=== PATIENT | female | born 1995 | race African-American/Black ===

== ENCOUNTER 2017-03-05 22:33 | Emergency (ER) | payer OTHER ==
[2017-03-05 22:40] VITALS: BMI 41.6
[2017-03-06] MEDS ORDERED: TORADOL 60 MG VIAL IM ONE (00:14)
[2017-03-06] MEDS ORDERED: TORADOL 60 MG VIAL ONE (00:16)
--- NOTE | 2017-03-06 00:16 | DR.GENAD ---
HPI - PCP Primary Care Physician: SHERIDAN - Complaint/Symptoms Chief Complaint Doctors Comments: complains of left lower abdominal pain with frequent urination and dysuria. States pain onset 8am with sharp left lower abdominal pain worst on movement. States she has had a problem with ovarian cyst before but denies kidney stones. States her last menstrual period wasFeb 16 and she is not taking any contraceptives because she is in a same sex relationship. She denies tobacco or alcohol usage. Chief Complaint:: LOWER ABDOMEN Self Treatment fo Chief Complaint: NO TREATMENT - Nurses notes reviewed Nurses Notes Review: Yes - Source History Provided: Patient - Mode of Arrival Mode of Arrival: Ambulatory - Timing Onset of Chief Complaint: 03/05/17 Came on: Gradually - Duration Duration: Intermittent How lon Duration: Hours - Location Location: left lower abdominal pain - Severity Severity: Moderate - Modifying Factors Worsens:: movement Improves:: nothing PMH - PMH Past Medical History: No Past Surgical History: No - Family History History of Family Medical Conditions: No - Social History Does patient currently use any type of tobacco product: No Have you used tobacco products in the last 12 months: No Type of Tobacco Use: None Does any household member use tobacco: No Alcohol Use: None Do you use any recreational Drugs:: No Lives With: Alone Lives Where: Home - infectious screening In the last 2 months have you had wt loss of >10#?: NO Have you had fever, night sweats or hemotysis?: No Have you traveled outside the country in the last 6 months?: No Isolation: Standard ROS - Review of Systems Constitutional: No Symptoms Reported. negative: See HPI, Chills, Diaphoresis, Fever, Malaise, Weakness, Irritable, Fatigue, Loss of Appetite, Other Eyes: No Symptoms Reported ENTM: No Symptoms Reported. negative: See HPI, Ear Pain, Ear Discharge, Pulling on Ears, Hearing Loss, Nose Pain, Nose Discharge, Epistaxis, Nose Congestion, Mouth Pain, Mouth Swelling, Loose Teeth, Drooling, Throat Pain, Throat Swelling, Ear Foreign Body Respiratoy: No Symptoms Reported. negative: See HPI, Productive Cough, Non- Productive Cough, Moist Cough, Dry Cough, Hacking Cough, Barking Cough, Brassy Cough, Orthopnea, Short of Breath, Stridor, Wheezing, Hemoptysis, Other Cardiovascular: No Symptoms Reported. negative: See HPI, Chest Pain, Edema, Palpitations, Syncope, Cyanosis, Skin Mottling, Other Gastrointestinal/Abdominal: Abdominal Pain. negative: No Symptoms Reported, See HPI, Constipation, Diarrhea, Nausea, Vomiting, Food Intolerance, Other Genitourinary: No Symptoms Reported, Dysuria, Frequency. negative: See HPI, Discharge, Hematuria, Pain, Bleeding, Other Neurological: No Symptoms Reported Musculoskeletal: No Symptoms Reported Integumentary: No Symptoms Reported. negative: See HPI, Change in Color, Change in Hair/Nails, Dryness, Lesions, Lumps, Rash, Itching, Wound, Bruises, Juandice, Other Hematologic/Lymphatic: No Symptoms Reported. negative: See HPI, Anemia, Blood Clots, Easy Bleeding, Easy Bruising, Swollen Glands, Lymphadenopathy, Other Endocrine: No Symptoms Reported Psychiatric: No Symptoms Reported PE - Vital Signs Vitals: Temperature 99.0 F Pulse Rate [Left Radial] 97 Pulse Rate 97 Respiratory Rate 18 Blood Pressure [Right Arm] 142/80 Blood Pressure 146/87 O2 Sat by Pulse Oximetry 100 - General Limitations: No Limitations General Appearance: Alert, In Distress (mild). negative: In No Apparent Distress, Appears Intoxicated, Anxious, Lethargic, Obtunded, Obese, Cachectic, Other - Head Head Exam: Normal Inspection, Atraumatic, Normocephalic - Eyes Eye exam: Normal Appearance, PERRL, EOMI. negative: Scleral Icterus, Conjunctival Injection, Nystagmus, Miosis, Mydrasis, Periorbital Swelling, Periorbital Tenderness, Other - ENT ENT Exam: Normal Exam, Normal Oropharynx, Normal External Ear Exam, Mucous Membranes Moist, TM's Normal Bilaterally External Ear Exam: Normal External Inspection TM/Canal Exam: Bilateral Normal Nose Exam: Normal Nose Exam, Sinus Tenderness, Nasal Deviation. negative: Crepitus, Septal Hematoma, Laceration, Abrasion, Other Mouth Exam: Normal Inspection Throat Exam: Normal Inspection - Neck Neck Exam: Normal Inspection, Full ROM, Trachea Midline. negative: Tenderness, Meningismus, Lymphadenopathy, Thyromegaly, Other - Chest Chest Inspection: Normal Inspection, Symmetric Chest Wall Rise - Respiratory Respiratory Exam: Normal Lung Sounds Bilat Respiratory Exam: Bilateral Clear to Auscultation - Cardiovascular Cardiovascular Exam: Regular Rate, Normal Rhythm, Normal Heart Sounds - Abdominal Exam Abdominal Exam: Normal Inspection, Normal Bowel Sounds, Soft, Tenderness (left lower abdominal tenderness), Guarding, Dimnished Bowel Sounds Abdominal Tenderness: LLQ, Mild - Extremities Extremities Exam: Normal Inspection, Full ROM, Normal Capillary Refill. negative: Tenderness, Edema, Joint Swelling, Calf Tenderness, Other - Back Back Exam: Normal Inspection, Full ROM. negative: Tenderness, (R) CVA Tenderness, (L) CVA Tenderness, Muscle Spasm, Paraspinal Tenderness, Vertebral Tenderness, Rashes, (R) Sciatic Notch Tenderness, (L) Sciatic Notch Tendern, (R ) Straight Leg Raise, (L) Straight Leg Raise, Other - Neurologic Neurological Exam: Alert, Oriented X3, CN II-XII Intact, Normal Gait, Reflexes Normal - Psychiatric Psychiatric Exam: Normal Affect, Normal Mood. negative: Depressed, Agitated, Anxious, Flat Affect, Manic, Homicidal Ideation, Suicidal Ideation, Other - Skin Skin Exam: Warm, Dry, Intact, Normal Color. negative: Rash, Cyanosis, Diaphoresis, Erythema, Pallor, Mottled, Other ROR - Labs Reviewed Laboratory Results Reviewed?: Yes (all labs and x-ray results reviewed and discussed with patient) Result Diagrams: 03/06/17 00:37 03/06/17 00:37 Laboratory: WBC 20.5 X10^3/uL (3.6-10.0) H 03/06/17 00:37 RBC 5.49 X10^6/uL (3.5-5.4) H 03/06/17 00:37 Hgb 11.4 g/dL (12.0-16.0) L 03/06/17 00:37 Hct 35.5 % (36.0-47.0) L 03/06/17 00:37 MCV 64.6 fL (80.0-100.0) L 03/06/17 00:37 MCH 20.8 pg (27.0-34.0) L 03/06/17 00:37 MCHC 32.3 g/dL (33.0-35.0) L 03/06/17 00:37 RDW 17.2 % (11.6-16.5) H 03/06/17 00:37 Plt Count 235 X10^3/uL (150.0-450.0) 03/06/17 00:37 Plt Count Comment Adequate (ADEQUATE) 03/06/17 00:37 MPV 8.3 fL (7.4-11.0) 03/06/17 00:37 Neut % 86.9 % (42.0-75.0) H 03/06/17 00:37 Lymph % 7.0 % (21.0-51.0) L 03/06/17 00:37 [place] % 5.9 % (0.0-13.0) 03/06/17 00:37 Eos % 0.0 % (0.9-2.9) L 03/06/17 00:37 Baso % 0.2 % (0.2-1.0) 03/06/17 00:37 Neut # 17.8 x10^3/uL (2.2-4.8) H 03/06/17 00:37 Lymph # 1.4 X10^3/uL (1.3-2.9) 03/06/17 00:37 [place] # 1.2 x10^3/uL (0.3-0.8) H 03/06/17 00:37 Eos # 0.0 x10^3/uL (0.0-0.2) 03/06/17 00:37 Baso # 0.0 X10^3/uL (0.0-0.1) 03/06/17 00:37 Absolute Nucleated RBC 0.0 /100WBC 03/06/17 00:37 Plt Morphology Comment Normal (NORMAL) 03/06/17 00:37 RBC Morphology Abnormal (NORMAL) A 03/06/17 00:37 Hypochromasia 2+ A 03/06/17 00:37 Anisocytosis Slight A 03/06/17 00:37 Microcytosis 2+ A 03/06/17 00:37 Sodium 140 mmol/L (136-145) 03/06/17 00:37 Corrected Sodium TNP 03/06/17 00:37 Potassium 3.7 mmol/L (3.5-5.1) 03/06/17 00:37 Chloride 105 mmol/L (98-107) 03/06/17 00:37 Carbon Dioxide 24.3 mmol/L (21-32) 03/06/17 00:37 BUN 7 mg/dL (7-18) 03/06/17 00:37 Creatinine 0.89 mg/dL (0.55-1.02) 03/06/17 00:37 Est GFR (MDRD) Af Amer > 60 (>60) 03/06/17 00:37 Est GFR (MDRD) Non-Af > 60 (>60) 03/06/17 00:37 Glucose 98 mg/dL (65-99) 03/06/17 00:37 Calcium 8.8 mg/dL (8.5-10.1) 03/06/17 00:37 Corrected Calcium 9.5 mg/dL (8.5-10.1) 03/06/17 00:37 Total Bilirubin 0.70 mg/dL (0.2-1.0) 03/06/17 00:37 AST 13 Units/L (15-37) L 03/06/17 00:37 ALT 18 Units/L (12-78) 03/06/17 00:37 Alkaline Phosphatase 62 Units/L (46-116) 03/06/17 00:37 Total Protein 6.9 g/dL (6.4-8.2) 03/06/17 00:37 Albumin 3.1 g/dL (3.4-5.0) L 03/06/17 00:37 Globulin 3.8 g/dL (2.5-4.5) 03/06/17 00:37 Albumin/Globulin Ratio 0.8 Ratio (1.1-2.1) L 03/06/17 00:37 Amylase 37 Units/L (25-115) 03/06/17 00:37 Lipase 88 Units/L (73-393) 03/06/17 00:37 HCG, Qual Negative <10 mIU/mL 03/06/17 00:37 - XRAY XRAY Interpreted by: Radiologist (CT abdomen: Suggestive for bilateralhydrosalpinx with mild inflammatorystanding suggestive for PID) - Diagnosis Discharge Problem: Pelvic inflammatory disease (PID), Abdominal pain, Dysuria - Discharge Plan Disposition: 01 HOME, SELF-CARE Condition: Stable Prescriptions: Amoxicillin/Potassium Clav [Augmentin 875-125 Tablet] 1 tab PO Q12H #20 tab Doxycycline Hyclate [Vibramycin] 100 mg PO BID PRN #20 cap PRN Reason: Ibuprofen [MOTRIN TAB 800 MG *] 800 mg PO BID PRN #60 tab PRN Reason: Pain/Inflammation Metronidazole [Flagyl Tab 500 mg] 500 mg PO BID PRN #20 tab PRN Reason: - Follow ups/Referrals Follow ups/Referrals: TANISHA ZHANG [Primary Care Provider] - 3 days ROSA ARROA [STAFF PHYSICIAN] - 3 days - Instructions Instructions: Pelvic Inflammatory Disease, Dysuria
[2017-03-06 01:01] LABS: SERUM PREGNANCY TEST, QUAL NEGATIVE <10 mIU/mL
[2017-03-06 01:02] LABS: BASOPHILS % (AUTO) 0.2 % (0.2-1.0); HEMATOCRIT 35.5 % (36.0-47.0); HEMOGLOBIN 11.4 g/dL (12.0-16.0); LYMPHOCYTES # (AUTO) 1.4 X10^3/uL (1.3-2.9); MEAN CORPUSCULAR HEMOGLOBIN 20.8 pg (27.0-34.0); MEAN CORPUSCULAR HGB CONC 32.3 g/dL (33.0-35.0); MEAN CORPUSCULAR VOLUME 64.6 fL (80.0-100.0); MEAN PLATELET VOLUME 8.3 fL (7.4-11.0); MONOCYTES # (AUTO) 1.2 x10^3/uL (0.3-0.8); MONOCYTES % (AUTO) 5.9 % (0.0-13.0); NEUTROPHILS # (AUTO) 17.8 x10^3/uL (2.2-4.8); NEUTROPHILS % (AUTO) 86.9 % (42.0-75.0); PLATELET COUNT 235 X10^3/uL (150.0-450.0); RED BLOOD COUNT 5.49 X10^6/uL (3.5-5.4); RED CELL DISTRIBUTION WIDTH 17.2 % (11.6-16.5); WHITE BLOOD COUNT 20.5 X10^3/uL (3.6-10.0)
[2017-03-06 01:04] LABS: ALANINE AMINOTRANSFERASE 18 Units/L (12-78); ALBUMIN 3.1 g/dL (3.4-5.0); ALKALINE PHOSPHATASE 62 Units/L (46-116); AMYLASE 37 Units/L (25-115); ASPARTATE AMINO TRANSFERASE 13 Units/L (15-37); BLOOD UREA NITROGEN 7 mg/dL (7-18); CALCIUM 8.8 mg/dL (8.5-10.1); CARBON DIOXIDE 24.3 mmol/L (21-32); CHLORIDE 105 mmol/L (98-107); COR CA(FOR HYPOALB) 9.5 mg/dL (8.5-10.1); CREATININE 0.89 mg/dL (0.55-1.02); LIPASE 88 Units/L (73-393); SODIUM 140 mmol/L (136-145); TOTAL PROTEIN 6.9 g/dL (6.4-8.2); eGFR BLACK RACES > 60 (>60); eGFR NON BLACK RACES > 60 (>60)
[2017-03-06 01:27] LABS: ANISOCYTOSIS SLIGHT; HYPOCHROMASIA 2+; MICROCYTOSIS 2+; PLATELET MORPHOLOGY COMMENT NORMAL (NORMAL)
--- NOTE | 2017-03-06 01:36 | CT ---
CT abdomen and pelvis without contrast Indication: Left lower abdominal pain Technique: Helical CT images of the abdomen and pelvis were obtained without IV contrast. Reformatted images in the coronal and sagittal planes were also generated for review. Comparison: None Findings: Lung bases are clear. No aggressive osseous lesions are identified. Within the limits of a noncontrast exam, the liver, gallbladder, spleen, pancreas, adrenals and kidne ys are unremarkable. No radiopaque urinary tract stones or hydroureteronephrosis is identified. The G I tract, including the appendix is normal. There are fluid-filled, tubular structures within the right and left lower abdomen which appear to re present dilated fallopian tubes, compatible with hydrosalpinx. Mild surrounding inflammatory strandin g is seen. The unenhanced uterus is grossly within normal limits. The IVC, abdominal aorta and urinar y bladder are normal. No free air, free fluid or lymphadenopathy is identified. Impression: Imaging findings suggestive for bilateral hydrosalpinx with mild inflammatory stranding within the lo wer pelvis, collectively suggestive for PID. No definite tubo-ovarian abscess is identified, within t he limitations of a noncontrast exam. Reported By:
[2017-03-06] MEDS ORDERED: ROCEPHIN VIAL 1 GM IM ONE (01:54)
[2017-03-06] MEDS ORDERED: VIBRAMYCIN PO ONE ×2 (01:54→02:05)
[2017-03-06] MEDS ORDERED: ROCEPHIN VIAL 1 GM ONE (02:05)
[2017-03-06 02:07] VITALS: BP 142/80
[2017-03-06 02:51] LABS: BILIRUBIN,URINE NEGATIVE (NEGATIVE); BLOOD/HEMOGLOBIN,URINE NEGATIVE (NEGATIVE); GLUCOSE, URINE NEGATIVE (NEGATIVE); KETONES,URINE NEGATIVE (NEGATIVE); LEUKOCYTE ESTERASE ,URINE 1+ (NEGATIVE); NITRITES,URINE NEGATIVE (NEGATIVE); PROTEIN,URINE 1+ (NEGATIVE); UROBILINOGEN,URINE NORMAL (NORMAL)
[2017-03-06 03:00] LABS: APPEARANCE,URINE CLEAR (CLEAR); BACTERIA,URINE NEGATIVE /HPF (NEGATIVE); COLOR,URINE YELLOW (YELLOW); MUCUS,URINE FEW /HPF (NEGATIVE); RBC,URINE 0-3 /HPF (NEGATIVE); SQUAMOUS EPITHELIAL CELL,UR MODERATE /HPF (NEGATIVE)
== END 2017-03-06 03:11 | disposition home or self-care (01) ==
LOC: ER 22:33
DX: N73.9 Female pelvic inflammatory disease, unspecified (principal); R10.32 Left lower quadrant pain; R30.0 Dysuria
CPT/HCPCS: 36415; 74176; 80053; 81001; 82150; 83690; 84703; 85025; 96372; 96374; 99283; 99284; J0696; J1885